=== PATIENT | male | born 1980 | race Caucasian/White ===

== ENCOUNTER 2020-09-11 14:15 | Emergency (ER) | payer BC, OTHER ==
[2020-09-11] MEDS ORDERED: ONDANSETRON 4 MG/2 ML VIAL ONE (15:00)
[2020-09-11] MEDS ORDERED: MORPHINE 4 MG/ML SYR ONE ×2 (15:00→15:43)
--- NOTE | 2020-09-11 15:29 | RAD REPORT ---
EXAM DESCRIPTION: CT - Spine Lumbar Wo Con - 09/11/2020 3:11 pm CLINICAL HISTORY: Radiculopathy. LOWER BACK PAIN COMPARISON: No comparisons TECHNIQUE: Axial noncontrast CT imaging of the lumbar spine was performed with coronal and sagittal re-formatted images. All CT scans are performed using dose optimization technique as appropriate and may include automated exposure control or mA/KV adjustment according to patient size. FINDINGS: No acute lumbar spine fracture seen. No aggressive marrow pattern or malalignment. Paraspinal tissues are normal in thickness. No paraspinal abscess or hematoma seen. Mild posterior disc bulges are seen involving the lower lumbar levels. No severe canal stenosis ident ified. IMPRESSION: No acute lumbar spine abnormality. Mild posterior disc bulges at the lower levels of the lumbar spine are seen. Recommend follow-up none mergent MRI lumbar spine assessment.
[2020-09-11] MEDS ORDERED: KETOROLAC 30 MG/ML INJ ONE (16:06)
[2020-09-11] MEDS ORDERED: LIDOCAINE 4% PATCH ONE (16:06)
[2020-09-11] MEDS ORDERED: CYCLOBENZAPRINE 10 MG TAB ONE (16:49)
[2020-09-11] MEDS ORDERED: FENTANYL CITR 100 MCG/2 ML ONE (16:49)
--- NOTE | 2020-09-11 17:05 | EDPHYS ---
Physician Documentation [facility] Name: Dakota Carr Age: 40 yrs Sex: Male : 1980 Arrival Date: 09/11/2020 Time: 14:16 Bed 7 Private MD: MARIO ALBERTO Physician Ben Vogt HPI: 09/11 14:56 This 40 yrs old Male presents to ER via Wheelchair with complaints of Back pm1 Pain. 14:56 The patient presents with pain that is acute, with no known mechanism of injury. The pm1 symptoms are located in the low back. Onset: The symptoms/episode began/occurred 4 day(s) ago. The pain radiates to the right and left leg. Associated signs and symptoms: Pertinent positives: numbness and tingling to bilateral quadriceps with walking, Pertinent negatives: chest pain, constipation, dysuria, incontinence, numbness, urinary retention, vomiting. The problem was sustained from unknown cause. Modifying factors: the patient symptoms are aggravated by walking. Severity of symptoms: in the emergency department the symptoms are actually worse. The patient has not recently seen a physician. Historical: - Allergies: 14:26 Vancomycin; ll1 14:26 Levofloxacin; ll1 - PMHx: 14:26 Kidney stones; ll1 - PSHx: 14:26 Kidney stents; Lithotripsy; Appendectomy; Hernia repair; ll1 - Immunization history:: Flu vaccine is not up to date. - Social history:: Smoking status: Patient denies any tobacco usage or history of. ROS: 14:56 Constitutional: Negative for fever, chills, and weight loss. pm1 14:56 Cardiovascular: Negative for chest pain, palpitations, and edema, Respiratory: Negative pm1 for shortness of breath, cough, wheezing, and pleuritic chest pain, Abdomen/GI: Negative for abdominal pain, nausea, vomiting, diarrhea, and constipation. 14:56 : Negative for injury, bleeding, discharge, and swelling, MS/Extremity: Negative for injury and deformity, Skin: Negative for injury, rash, and discoloration. 14:56 Back: Positive for of the lumbar area and sacrum. 14:56 Neuro: Positive for numbness, tingling, of the right and left quadriceps with walking. Exam: 14:56 Constitutional: This is a well developed, well nourished patient who is awake, alert, pm1 and in no acute distress. Head/Face: Normocephalic, atraumatic. 14:56 Skin: Warm, dry with normal turgor. Normal color with no rashes, no lesions, and no evidence of cellulitis. MS/ Extremity: Pulses equal, no cyanosis. Neurovascular intact. Full, normal range of motion. 14:56 Cardiovascular: Exam negative for acute changes, Rate: normal, Rhythm: regular, Pulses: no pulse deficits are appreciated. 14:56 Respiratory: Exam negative for acute changes, respiratory distress, shortness of breath. 14:56 Abdomen/GI: Exam negative for acute changes, Inspection: abdomen appears normal, Palpation: abdomen is soft and non-tender, in all quadrants. 14:56 Back: pain, of the lower lumbar area, normal spinal alignment noted. 14:56 Neuro: Exam negative for acute changes, Orientation: is normal, Mentation: is normal, appropriate for stated age, Motor: is normal, moves all fours, Sensation: is normal, no obvious gross deficits. Vital Signs: 14:25 BP 155 / 107; Pulse 89; Resp 18; Temp 97.2; Pulse Ox 99% ; Weight 99.79 kg; Height 6 ll1 ft. 2 in. (187.96 cm); Pain 10/10; 14:57 Pulse 90; Resp 20; Pulse Ox 97% on R/A; sv 15:30 Pain 8/10; sv 15:54 Pain 8/10; sv 15:56 Pulse 70; Resp 16; Pulse Ox 96% on R/A; sv 16:43 Pulse 78; Resp 18; Pulse Ox 98% on R/A; sv 17:36 Pain 5/10; sv 17:36 Pulse 72; Resp 16; Pulse Ox 99% on R/A; sv 14:25 Body Mass Index 28.25 (99.79 kg, 187.96 cm) ll1 MDM: 14:26 Patient medically screened. pm1 17:02 Data reviewed: vital signs. Data interpreted: Pulse oximetry: on room air is 98 %. pm1 Interpretation: normal. Counseling: I had a detailed discussion with the patient and/or guardian regarding: the historical points, exam findings, and any diagnostic results supporting the discharge/admit diagnosis, radiology results, the need for outpatient follow up, for definitive care, a neurosurgeon, to return to the emergency department if symptoms worsen or persist or if there are any questions or concerns that arise at home. 09/11 14:32 Order name: CT Lumbar Spine Wo Con; Complete Time: 15:36 pm1 09/11 14:32 Order name: IV Saline Lock; Complete Time: 14:56 pm1 Administered Medications: 14:53 Drug: Zofran (Ondansetron) 4 mg Route: IVP; Site: right hand; sv 15:30 Follow up: Response: No adverse reaction sv 14:55 Drug: morphine 4 mg {Note: rass2.} Route: IVP; Site: right hand; sv 15:30 Follow up: Pain 8/10 Adult; Response: No adverse reaction; Pain is decreased; RASS: sv Agitated (+2) 15:29 Drug: morphine 4 mg {Note: rass2.} Route: IVP; Site: right hand; sv 15:54 Follow up: Pain 8/10 Adult; Response: No adverse reaction; Pain is unchanged, physician sv notified; RASS: Agitated (+2) 15:54 Drug: Lidoderm 5 % (700 mg/patch) 1 patches {Note: low back.} Route: Topical; Site: sv affected area; 15:54 Drug: TORadol 30 mg Route: IVP; Site: right hand; sv 16:41 Follow up: Response: No adverse reaction sv 16:40 Drug: Flexeril 10 mg Route: PO; sv 17:36 Follow up: Response: No adverse reaction sv 16:40 Drug: fentaNYL (PF) 50 mcg {Note: rass1.} Route: IVP; Site: right hand; sv 17:36 Follow up: Pain 5/10 Adult; Response: No adverse reaction; RASS: Alert and Calm (0) sv Disposition: 09/12 14:38 Co-signature as Attending Physician, Ben Vogt MD I agree with the assessment and carolyn plan of care. Disposition: 09/11/20 17:05 Discharged to Home. Impression: Low back pain, Other intervertebral disc displacement, lumbar region - herniated disc. - Condition is Stable. - Discharge Instructions: Back Pain, Adult, Herniated Disk. - Prescriptions for Tylenol- Codeine #3 300-30 mg Oral Tablet - take 2 tablets by ORAL route every 6 hours As needed; 20 tablet. Lidoderm 5 % Topical adhesive patch,medicated - apply 1 patch by TRANSDERMAL route once daily As needed 12 hours on and 12 hours off in a 24 hour period; 30 Transdermal Patch. Cyclobenzaprine 10 mg Oral Tablet - take 1 tablet by ORAL route every 8 hours As needed; 30 tablet. - Medication Reconciliation Form, Thank You Letter, Antibiotic Education, Prescription Opioid Use form. - Follow up: Emergency Department; When: As needed; Reason: Worsening of condition. Follow up: Private Physician; When: 2 - 3 days; Reason: Recheck today's complaints, Continuance of care, Re-evaluation by your physician. - Problem is new. - Symptoms have improved. Signatures: Dispatcher [employer] EDDiane Greenberg RN RN sv Ben Vogt MD MD cha Marinas, Patrick, WOODEN TANK ERECTOR WOODEN TANK ERECTOR pm1 Shaila Vance RN RN ll1 Corrections: (The following items were deleted from the chart) 09/11 17:55 17:05 09/11/2020 17:05 Discharged to Home. Impression: Low back pain; Other sv intervertebral disc displacement, lumbar region - herniated disc. Condition is Stable. Forms are Medication Reconciliation Form, Thank You Letter, Antibiotic Education, Prescription Opioid Use. Follow up: Emergency Department; When: As needed; Reason: Worsening of condition. Follow up: Private Physician; When: 2 - 3 days; Reason: Recheck today's complaints, Continuance of care, Re-evaluation by your physician. Problem is new. Symptoms have improved. pm1
--- NOTE | 2020-09-11 17:05 | ER ---
Nurse's Notes [facility] Name: Dakota Carr Age: 40 yrs Sex: Male : 1980 Arrival Date: 09/11/2020 Time: 14:16 Bed 7 Private MD: Diagnosis: Low back pain;Other intervertebral disc displacement, lumbar region-herniated disc Presentation: 09/11 14:25 Chief complaint: Patient states: Low back pain for 4 days, worse today. Pain radiates ll1 down both legs. No urinary problems. No fever. Coronavirus screen: Client denies travel out of the [place] in the last 14 days. At this time, the client does not indicate any symptoms associated with coronavirus-19. Ebola Screen: Patient denies travel to an Ebola-affected area in the 21 days before illness onset. Initial Sepsis Screen: Does the patient meet any 2 criteria? No. Patient's initial sepsis screen is negative. Does the patient have a suspected source of infection? Yes: Bone or joint infection. Risk Assessment: Do you want to hurt yourself or someone else? Patient reports no desire to harm self or others. Onset of symptoms was September 07, 2020. 14:25 Method Of Arrival: Wheelchair ll1 14:25 Acuity: CIARA 3 ll1 Historical: - Allergies: 14:26 Vancomycin; ll1 14:26 Levofloxacin; ll1 - PMHx: 14:26 Kidney stones; ll1 - PSHx: 14:26 Kidney stents; Lithotripsy; Appendectomy; Hernia repair; ll1 - Immunization history:: Flu vaccine is not up to date. - Social history:: Smoking status: Patient denies any tobacco usage or history of. Screenin:52 Abuse screen: Denies threats or abuse. Denies injuries from another. Nutritional sv screening: No deficits noted. Tuberculosis screening: No symptoms or risk factors identified. Fall Risk None identified. Assessment: 14:50 General: Appears in no apparent distress. uncomfortable, well developed, Behavior is sv calm, cooperative, appropriate for age. Pain: Complains of pain in low back area Pain radiates to right leg and left leg Pain currently is 10 out of 10 on a pain scale. Pain began 4 days ago Is continuous. Neuro: Level of Consciousness is awake, alert, obeys commands, Oriented to person, place, time, situation, Moves all extremities. Full function. Respiratory: Airway is patent Respiratory effort is even, unlabored, Respiratory pattern is regular, symmetrical. Derm: Skin is intact, Skin is pink, warm \T\ dry. Musculoskeletal: Range of motion: intact in all extremities. 15:29 Reassessment: Patient appears in no apparent distress at this time. Patient and/or sv family updated on plan of care and expected duration. Pain level reassessed. Patient is alert, oriented x 3, equal unlabored respirations, skin warm/dry/pink. Patient states symptoms have improved. Pain: Pain currently is 8 out of 10 on a pain scale. 16:41 Reassessment: Patient appears in no apparent distress at this time. No changes from sv previously documented assessment. Patient and/or family updated on plan of care and expected duration. Pain level reassessed. Patient is alert, oriented x 3, equal unlabored respirations, skin warm/dry/pink. 17:20 Reassessment: Pt waiting for his transportation home. sv 17:35 Reassessment: Patient appears in no apparent distress at this time. Patient and/or sv family updated on plan of care and expected duration. Pain level reassessed. Patient is alert, oriented x 3, equal unlabored respirations, skin warm/dry/pink. Patient states feeling better. Patient states symptoms have improved. Vital Signs: 14:25 BP 155 / 107; Pulse 89; Resp 18; Temp 97.2; Pulse Ox 99% ; Weight 99.79 kg; Height 6 ll1 ft. 2 in. (187.96 cm); Pain 10/10; 14:57 Pulse 90; Resp 20; Pulse Ox 97% on R/A; sv 15:30 Pain 8/10; sv 15:54 Pain 8/10; sv 15:56 Pulse 70; Resp 16; Pulse Ox 96% on R/A; sv 16:43 Pulse 78; Resp 18; Pulse Ox 98% on R/A; sv 17:36 Pain 5/10; sv 17:36 Pulse 72; Resp 16; Pulse Ox 99% on R/A; sv 14:25 Body Mass Index 28.25 (99.79 kg, 187.96 cm) ll1 ED Course: 14:16 Patient arrived in ED. ds1 14:23 Diane Blackmon RN is Primary Nurse. sv 14:25 [facility] pm1 14:25 Ben Vogt MD is Attending Physician. pm1 14:26 Triage completed. ll1 14:26 Arm band placed on Patient placed in an exam room, on a stretcher. ll1 14:52 Patient has correct armband on for positive identification. Bed in low position. Call sv light in reach. Side rails up X2. Pulse ox on. Door closed. Head of bed elevated. 14:52 Inserted saline lock: 22 gauge in right hand, using aseptic technique. Blood collected. sv Flushed right hand with 5 ml normal saline. 15:10 CT Lumbar Spine Wo Con In Process Unspecified. EDMS 17:36 No provider procedures requiring assistance completed. IV discontinued, intact, sv bleeding controlled, No redness/swelling at site. Pressure dressing applied. Administered Medications: 14:53 Drug: Zofran (Ondansetron) 4 mg Route: IVP; Site: right hand; sv 15:30 Follow up: Response: No adverse reaction sv 14:55 Drug: morphine 4 mg {Note: rass2.} Route: IVP; Site: right hand; sv 15:30 Follow up: Pain 8/10 Adult; Response: No adverse reaction; Pain is decreased; RASS: sv Agitated (+2) 15:29 Drug: morphine 4 mg {Note: rass2.} Route: IVP; Site: right hand; sv 15:54 Follow up: Pain 8/10 Adult; Response: No adverse reaction; Pain is unchanged, physician sv notified; RASS: Agitated (+2) 15:54 Drug: Lidoderm 5 % (700 mg/patch) 1 patches {Note: low back.} Route: Topical; Site: sv affected area; 15:54 Drug: TORadol 30 mg Route: IVP; Site: right hand; sv 16:41 Follow up: Response: No adverse reaction sv 16:40 Drug: Flexeril 10 mg Route: PO; sv 17:36 Follow up: Response: No adverse reaction sv 16:40 Drug: fentaNYL (PF) 50 mcg {Note: rass1.} Route: IVP; Site: right hand; sv 17:36 Follow up: Pain 5/10 Adult; Response: No adverse reaction; RASS: Alert and Calm (0) sv Outcome: 17:05 Discharge ordered by . pm1 17:37 Discharged to home via wheelchair, with family. sv 17:37 Condition: stable 17:37 Discharge instructions given to patient, Instructed on discharge instructions, follow up and referral plans. no drinking with medication, no driving heavy equipment, medication usage, Demonstrated understanding of instructions, follow-up care, medications, Prescriptions given X 3. 17:55 Patient left the ED. sv Signatures: Dispatcher [employer] Diane Cifuentes RN RN sv Sanford, Demi ds1 Shyam Walsh NP [employer] ENGINEER pm1 Shaila Vance RN RN ll1
[2020-09-11 17:59] VITALS: BP 155/107; TEMP 97.2
[2020-09-11 18:06] VITALS: O2SAT 99
== END 2020-09-11 17:55 | disposition home or self-care (01) ==
LOC: ER 14:15
DX: M51.26 Other intervertebral disc displacement, lumbar region (principal); Z87.442 Personal history of urinary calculi; Z88.1 Allergy status to other antibiotic agents; Z88.3 Allergy status to other anti-infective agents
CPT/HCPCS: 72131; 96375; 96374; 99284; J3010; J2405

== ENCOUNTER 2022-03-08 09:33 | Emergency (ER) | payer BC ==
--- OUTSIDE RECORDS SUMMARY | 2022-03-08 09:36 | XMS REPORT | Continuity of Care Document ---
:1980 Author Organization [facility] t Address [address] [place] [address] Care Team Providers Name Role Phone ANAHI EASON Attending Clinician Unavailable HAN SAHNI Attending Clinician Unavailable NIKKI LUGO Attending Clinician Unavailable MD HAN SAHNI Attending Clinician Unavailable HAN SAHNI Admitting Clinician Unavailable MD HAN SAHNI Admitting Clinician Unavailable Problems This patient has no known problems. Allergies, Adverse Reactions, Alerts This patient has no known allergies or adverse reactions. Medications This patient has no known medications. Procedures This patient has no known procedures. Encounters Start End Encounter Admission Attending Care Care Encounter Source Date/Time Date/Time Type Type Clinicians Facility Department ID 2021-04-14 2021-04-14 Outpatient YUMI [facility] [id number] 00:00:00 00:00:00 ANAHI [facility] 2021-04-14 2021-04-14 Outpatient [facility] [id number] 00:00:00 00:00:[address] 2021-03-31 2021-03-31 [facility] [id number] 00:00:00 00:00:00 HAN [facility] 2021-02-07 2021-02-07 [facility] [id number] 00:00:00 00:00:00 HAN [address] 2021-01-13 2021-01-13 [facility] [id number] 00:00:00 00:00:00 NIKKI [address] 2021-01-11 2021-01-11 Outpatient [facility] 021 [id number] 00:00:00 00:00:00 HAN [address] 2021-01-07 2021-01-07 Outpatient SAHNI, [facility] [id number] 00:00:00 00:00:00 HAN [address] 2021-01-04 2021-01-04 Outpatient SAHNI, [facility] 021 [id number] 00:00:00 00:00:00 HAN [address] 2020-12-31 2020-12-31 Outpatient SAHNI, [facility] [id number] 00:00:00 00:00:00 HAN [address] 2020-12-30 2020-12-30 Outpatient SAHNI, [facility] [id number] 00:00:00 00:00:00 HAN [address] 2020-12-30 2020-12-30 Outpatient SAHNI, [facility] [id number] 00:00:00 00:00:00 HAN [address] 2020-12-30 2020-12-30 Outpatient SAHNI, [facility] [id number] 00:00:00 00:00:00 HAN [address] 2020-12-20 2020-12-20 Outpatient SAHNI, [facility] [id number] 00:00:00 00:00:00 HAN [address] 2020-12-19 2020-12-19 Outpatient SAHNI, [facility] [id number] 00:00:00 00:00:00 HAN [address] 2020-12-06 2020-12-06 Outpatient SAHNI, [facility] [id number] 00:00:00 00:00:00 HAN [address] 2020-12-06 2020-12-06 Outpatient SAHNI, [facility] [id number] 00:00:00 00:00:00 HAN [address] 2020-12-06 2020-12-06 Outpatient SAHNI, [facility] [id number] 00:00:00 00:00:00 HAN [address] 2020-12-06 2020-12-06 Outpatient SAHNI, [facility] [id number] 00:00:00 00:00:00 HAN [address] Results Test Description Test Time Test Comments Results Result Comments Source SARS-CoV-2 (COVID-19) RNA [Presence] in Respiratory sp ecimen by 2021-01-07 12:06:41 RINA with probe detection Test Item Value Reference Range Interpretation Comme nts SARS-CoV-2 (COVID-19) RNA [Presence] in Respiratory Not detected No t-Detected specimen by RINA with probe detection (test code = 61966-7) Whether patient is employed in a healthcare setting (test code = 81473-0) Whether the patient has symptoms related to condition of interest (test code = 37411-2) Patient was hospitalized because of this condition (test code = 97580-5) Whether the patient was admitted to intensive care unit (ICU) for condition of interest (test code = 15906-3) Whether patient resides in a congregate care setting (test code = 12145-0) SARS-CoV-2 (COVID-19) RNA [Presence] in Respiratory specimen by RINA with probe [id number] 00:01:06 Test Item Value Reference Range Interpretation Comments SARS-CoV-2 (COVID-19) RNA Not detected Not-Detected [Presence] in Respiratory specimen by RINA with probe detection (test code = 11627-8) Whether patient is employed in a healthcare setting (test code = 82385-5) Whether the patient has symptoms related to condition of interest (test code = 49390-8) Patient was hospitalized because of this condition (test code = 00252-8) Whether the patient was admitted to intensive care unit (ICU) for condition of interest (test code = 02553-3) Whether patient resides in a congregate care setting (test code = 62652-5)
[2022-03-08] MEDS ORDERED: HYDROMORPHONE HCL 1 MG/ML INJ ONE ×2 (09:53→11:34)
[2022-03-08] MEDS ORDERED: ONDANSETRON 4 MG/2 ML VIAL ONE (09:53)
[2022-03-08] MEDS ORDERED: KETOROLAC 30 MG/ML INJ ONE (09:53)
[2022-03-08] MEDS ORDERED: NA CHLORIDE 0.9% 1,000 ML ONE (09:54)
[2022-03-08 10:03] LABS: Absolute Lymphocytes (CBC) 2.3 K/uL (0.7-4.9); Hematocrit 48.8 % (39.6-49.0); Lymphocytes % 33.7 % (15.3-44.8); MCV 83.2 fL (80-100); MPV 7.1 fL (7.6-11.3); RBC Red Blood Cell Count 5.86 M/uL (4.33-5.43)
[2022-03-08 10:21] LABS: Albumin 3.9 g/dL (3.4-5.0); Bilirubin Total 0.5 mg/dL (0.2-1.0); Protein, Total 8.2 g/dL (6.4-8.2)
--- NOTE | 2022-03-08 10:26 | RAD REPORT ---
EXAM DESCRIPTION: CTStone Protocol - 03/08/2022 10:17 am CLINICAL HISTORY: flank pain COMPARISON: Abdomen Pelvis W Contrast dated 11/18/2016; CT ABD PELVIS W CONTRAST dated 04/16/2014; C TSTONE PROTOCOL dated 11/06/2012; CT-STONE PROTOCOL dated 10/26/2007 TECHNIQUE: CT of the abdomen and pelvis was performed. All CT scans are performed using dose optimization technique as appropriate and may include automated exposure control or mA/KV adjustment according to patient size. FINDINGS: Lower chest: Scattered coronary artery calcifications. Liver: Too small to characterize liver lesions which are likely benign. Biliary: No biliary ductal dilatation. Stomach: No significant focal abnormality. Duodenum: No significant focal abnormality. Pancreas: No significant abnormality. Spleen: No significant abnormality. Adrenal: No suspicious lesions. Kidney/ureter: Mild right-sided hydroureteronephrosis. 4 millimeters stone at the right distal ureter , just proximal to the UVJ. Retroperitoneum: No retroperitoneal adenopathy. Vascular: No aneurysm. Bowel: Appendectomy. No bowel obstruction .. Peritoneum: No ascites or free air. Bladder: Bladder wall thickening. Reproductive: No adnexal masses. Bones: No acute fracture. Other: n/a IMPRESSION: Mild right-sided hydroureteronephrosis secondary to a 4 mm stone in the right distal ure ter.
[2022-03-08] MEDS ORDERED: CEFTRIAXONE 1000 MG/VIAL ONE (10:43)
[2022-03-08] MEDS ORDERED: MAGNESIUM SULFATE 1 gm IVPB 1 GM/100 ML BAG IV ONE (10:43)
[2022-03-08] MEDS ORDERED: TAMSULOSIN 0.4 MG SR CAP ONE (10:43)
[2022-03-08 12:23] LABS: Urine Blood 3+ (Negative); Urine Glucose Negative (Negative); Urine Protein 2+ (Negative); Urine Specific Gravity >=1.030 (1.005-1.030); Urine pH 5.5 (5.0-7.0)
--- NOTE | 2022-03-08 12:33 | EDPHYS ---
Physician Documentation [facility] Name: Dakota Carr Age: 41 yrs Sex: Male : 1980 Arrival Date: 03/08/2022 Time: 09:34 Bed 12 Private MD: ED Physician Shahnaz Monroy HPI: 03/08 09:45 This 41 yrs old Male presents to ER via Ambulatory with complaints of Possible Kidney cp Stone. 09:45 The patient complains of pain in the right flank. The pain radiates to the right lower cp abdomen. 09:45 Onset: The symptoms/episode began/occurred suddenly, this morning. Associated signs and cp symptoms: Pertinent positives: nausea, vomiting. 09:45 Severity of pain: in the emergency department the pain is unchanged despite home cp interventions. 09:45 The patient has experienced similar episodes in the past, multiple times, today's cp symptoms are similar, to when the patient was apparently diagnosed with kidney stone. Historical: - Allergies: 09:37 Levofloxacin; iw 09:37 Vancomycin; iw - PMHx: 09:37 Kidney stones; iw - Immunization history:: Adult Immunizations unknown. - Social history:: Smoking status: unknown. ROS: 09:50 Constitutional: Negative for body aches, chills, fever, poor PO intake. cp 09:50 Back: Positive for flank pain, on the right. cp 09:50 Eyes: Negative for injury, pain, redness, and discharge. cp 09:50 ENT: Negative for drainage from ear(s), ear pain, sore throat, difficulty swallowing, difficulty handling secretions. 09:50 Cardiovascular: Negative for chest pain, edema, palpitations. 09:50 Respiratory: Negative for cough, shortness of breath, wheezing. 09:50 Abdomen/GI: Positive for nausea, Negative for diarrhea, constipation, active vomiting. 09:50 : Negative for urinary symptoms, testicular pain 09:50 All other systems are negative. Exam: 09:55 Constitutional: The patient appears in no acute distress, alert, awake, non-toxic, well cp developed, well nourished, in obvious pain, uncomfortable. 09:55 Head/Face: Normocephalic, atraumatic. cp 09:55 Eyes: Periorbital structures: appear normal, Conjunctiva: normal, no exudate, no injection, Sclera: no appreciated abnormality, Lids and lashes: appear normal, bilaterally. 09:55 ENT: External ear(s): are unremarkable, Nose: is normal, Mouth: Lips: moist, Oral mucosa: moist, Posterior pharynx: Airway: no evidence of obstruction, patent. 09:55 Chest/axilla: Inspection: normal. 09:55 Cardiovascular: Rate: normal, Rhythm: regular, Edema: is not appreciated, JVD: is not appreciated. 09:55 Respiratory: the patient does not display signs of respiratory distress, Respirations: normal, no use of accessory muscles, no retractions, labored breathing, is not present, Breath sounds: are clear throughout, no decreased breath sounds, no stridor, no wheezing. 09:55 Abdomen/GI: Inspection: abdomen appears normal, Bowel sounds: active, all quadrants, Palpation: soft, in all quadrants, severe abdominal tenderness, in the anterior aspect of right lateral abdomen and posterior aspect of right lateral abdomen, rebound tenderness, is not appreciated. 09:55 Skin: no rash present. Vital Signs: 09:36 BP 168 / 110; Pulse 77; Resp 16; Temp 97.2; Pulse Ox 99% on R/A; Weight 104.33 kg; iw Height 6 ft. 2 in. (187.96 cm); Pain 9/10; 09:36 Body Mass Index 29.53 (104.33 kg, 187.96 cm) iw MDM: 09:41 Patient medically screened. cp 10:00 Differential diagnosis: nephrolithiasis, pyelonephritis, UTI, testicular torsion, cp diverticulitis, pancreatitis. 12:32 Data reviewed: vital signs, nurses notes, lab test result(s), radiologic studies, CT cp scan. 12:32 Counseling: I had a detailed discussion with the patient and/or guardian regarding: the cp historical points, exam findings, and any diagnostic results supporting the discharge/admit diagnosis, lab results, radiology results, to return to the emergency department if symptoms worsen or persist or if there are any questions or concerns that arise at home. Response to treatment: the patient's symptoms have markedly improved after treatment, and as a result, I will discharge patient. ED course: VSS. Pain markedly improved. Will discharge to home for continued monitoring. 03/08 09:39 Order name: CBC with Diff; Complete Time: 10:29 iw 03/08 10:29 Interpretation: Normal except: RBC 5.86; MPV 7.1. cp 03/08 09:39 Order name: CMP; Complete Time: 10:29 iw 03/08 10:29 Interpretation: Normal except: CRE 1.49; GFR 61; GLOB 4.3; A/G 0.9. cp 03/08 09:39 Order name: Lipase; Complete Time: 10:29 iw 03/08 09:43 Order name: Urine Microscopic Only; Complete Time: 12:58 cp 03/08 12:58 Interpretation: Normal except: URBC >50; RAKESH Cx 1+. cp 03/08 09:43 Order name: CT Stone Protocol; Complete Time: 10:29 cp 03/08 12:23 Order name: Urine Dipstick-Ancillary; Complete Time: 12:32 EDMS 03/08 12:32 Interpretation: Normal except: UBLD 3+; UPROT 2+. cp 03/08 09:39 Order name: IV Saline Lock; Complete Time: 09:49 iw 03/08 09:39 Order name: Labs collected and sent; Complete Time: 09:49 iw 03/08 09:39 Order name: Urine Dipstick-Ancillary (obtain specimen); Complete Time: 12:22 iw Administered Medications: 09:54 Drug: NS 0.9% 1000 ml Route: IV; Rate: 1 bolus; Site: left antecubital; iw 11:00 Follow up: IV Status: Completed infusion iw 09:54 Drug: Dilaudid (HYDROmorphone) 1 mg Route: IVP; Site: left antecubital; iw 11:00 Follow up: Response: No adverse reaction; Pain is unchanged, physician notified iw 11:00 Follow up: Response: RASS: Restless (+1) iw 09:54 Drug: Ketorolac 15 mg Route: IVP; Site: left antecubital; iw 10:20 Follow up: Response: No adverse reaction iw 10:42 Drug: Flomax (tamsulosin) 0.4 mg Route: PO; iw 11:45 Follow up: Response: No adverse reaction iw 10:42 Drug: Magnesium Sulfate 1 grams Route: IVPB; Infused Over: 1 hrs; Site: left iw antecubital; 11:30 Follow up: IV Status: Completed infusion iw 10:42 Drug: Rocephin (cefTRIAXone) 1 grams Route: IV; Rate: calculated rate; Site: left iw antecubital; 10:45 Follow up: IV Status: Completed infusion iw 11:10 Drug: Dilaudid (HYDROmorphone) 1 mg Route: IVP; Site: left antecubital; iw 12:00 Follow up: Response: No adverse reaction iw 13:08 Drug: Hydrocodone-Acetaminophen (10 mg-500 mg) 1 tabs Route: PO; iw 13:25 Follow up: Response: No adverse reaction iw Disposition Summary: 03/08/22 12:32 Discharge Ordered Location: Home cp Problem: new cp Symptoms: have improved cp Condition: Stable cp Diagnosis - Calculus of ureter - right(03/08/22 12:34) cp Followup: cp - With: Leo Saleh MD - When: 2 - 3 days - Reason: Worsening of condition Discharge Instructions: - Discharge Summary Sheet cp - Kidney Stones cp - Renal Colic cp Forms: - Medication Reconciliation Form cp - Thank You Letter cp - Antibiotic Education cp - Prescription Opioid Use cp Prescriptions: - Flomax 0.4 mg Oral capsule - take 1 capsule by ORAL route once daily 1/2 hour following the same meal each cp day; 5 capsule; Refills: 0, Product Selection Permitted - Zofran 4 mg Oral Tablet - take 1 tablet by ORAL route every 12 hours As needed; 20 tablet; Refills: 0, cp Product Selection Permitted - cefpodoxime 200 mg Oral Tablet - take 1 tablet by ORAL route every 12 hours for 7 days with food; 14 tablet; cp Refills: 0, Product Selection Permitted - Tylenol-Codeine #3 300 mg-30 mg Oral - take 2 tablet by ORAL route every 6-8 hours; 20 tablet; Refills: 0, Product cp Selection Permitted Signatures: Dispatcher [employer] Marycarmen Vasquez RN RN iw Ben Mccormick PA PA cp Corrections: (The following items were deleted from the chart) 12:34 12:32 Calculus of kidney with calculus of ureter cp cp 12:34 12:32 Calculus of ureter cp cp
--- NOTE | 2022-03-08 12:33 | ER ---
Nurse's Notes [facility] Name: Dakota Carr Age: 41 yrs Sex: Male : 1980 Arrival Date: 03/08/2022 Time: 09:34 Bed 12 Private MD: Diagnosis: Calculus of ureter-right Presentation: 03/08 09:36 Chief complaint: Patient states: right flank pain since 714, +n/v, +hx of kidney iw stones. Coronavirus screen: At this time, the client does not indicate any symptoms associated with coronavirus-19. Ebola Screen: Patient negative for fever greater than or equal to 101.5 degrees Fahrenheit, and additional compatible Ebola Virus Disease symptoms Patient denies exposure to infectious person. Patient denies travel to an Ebola-affected area in the 21 days before illness onset. No symptoms or risks identified at this time. Initial Sepsis Screen: Does the patient meet any 2 criteria? No. Patient's initial sepsis screen is negative. Does the patient have a suspected source of infection? No. Patient's initial sepsis screen is negative. Risk Assessment: Do you want to hurt yourself or someone else? Patient reports no desire to harm self or others. Onset of symptoms was March 08, 2022. 09:36 Method Of Arrival: Ambulatory iw 09:36 Acuity: CIARA 3 iw Historical: - Allergies: 09:37 Levofloxacin; iw 09:37 Vancomycin; iw - PMHx: 09:37 Kidney stones; iw - Immunization history:: Adult Immunizations unknown. - Social history:: Smoking status: unknown. Screenin:40 Abuse screen: Denies threats or abuse. Denies injuries from another. Nutritional iw screening: No deficits noted. Tuberculosis screening: No symptoms or risk factors identified. Fall Risk IV access (20 points). Assessment: 09:39 General: Appears uncomfortable, Behavior is cooperative. Pain: Complains of pain in iw anterior aspect of right lateral abdomen, posterior aspect of right lateral abdomen, right upper quadrant and right lower quadrant. Neuro: Level of Consciousness is awake, alert, obeys commands, Oriented to person, place, time, situation. Respiratory: Respiratory effort is even, unlabored, Respiratory pattern is regular, symmetrical. GI: Bowel sounds present X 4 quads. Abd is soft X 4 quads Reports. : Reports pain in right flank(s). Vital Signs: 09:36 BP 168 / 110; Pulse 77; Resp 16; Temp 97.2; Pulse Ox 99% on R/A; Weight 104.33 kg; iw Height 6 ft. 2 in. (187.96 cm); Pain 9/10; 09:36 Body Mass Index 29.53 (104.33 kg, 187.96 cm) iw ED Course: 09:34 Patient arrived in ED. as 09:37 Triage completed. iw 09:38 Marycarmen Dudley, RN is Primary Nurse. iw 09:39 Ben Mccormick PA is PHCP. cp 09:39 Shahnaz Monroy MD is Attending Physician. cp 09:39 Arm band placed on. iw 09:45 Patient has correct armband on for positive identification. iw 09:49 Initial lab(s) drawn, by me, sent to lab. Inserted saline lock: 20 gauge in left jw7 antecubital area, using aseptic technique. Blood collected. 09:49 CBC with Diff Sent. jw7 09:49 CMP Sent. jw7 09:49 Lipase Sent. jw7 10:19 CT Stone Protocol In Process Unspecified. EDMS 12:26 Urine Microscopic Only Sent. kc6 12:31 Leo Saleh MD is Referral Physician. cp 13:11 No provider procedures requiring assistance completed. iw 13:12 IV discontinued, intact, bleeding controlled, No redness/swelling at site. Pressure iw dressing applied. Administered Medications: :54 Drug: NS 0.9% 1000 ml Route: IV; Rate: 1 bolus; Site: left antecubital; iw 11:00 Follow up: IV Status: Completed infusion iw :54 Drug: Dilaudid (HYDROmorphone) 1 mg Route: IVP; Site: left antecubital; iw 11:00 Follow up: Response: No adverse reaction; Pain is unchanged, physician notified iw 11:00 Follow up: Response: RASS: Restless (+1) iw :54 Drug: Ketorolac 15 mg Route: IVP; Site: left antecubital; iw 10:20 Follow up: Response: No adverse reaction iw 10:42 Drug: Flomax (tamsulosin) 0.4 mg Route: PO; iw 11:45 Follow up: Response: No adverse reaction iw 10:42 Drug: Magnesium Sulfate 1 grams Route: IVPB; Infused Over: 1 hrs; Site: left iw antecubital; 11:30 Follow up: IV Status: Completed infusion iw 10:42 Drug: Rocephin (cefTRIAXone) 1 grams Route: IV; Rate: calculated rate; Site: left iw antecubital; 10:45 Follow up: IV Status: Completed infusion iw 11:10 Drug: Dilaudid (HYDROmorphone) 1 mg Route: IVP; Site: left antecubital; iw 12:00 Follow up: Response: No adverse reaction iw 13:08 Drug: Hydrocodone-Acetaminophen (10 mg-500 mg) 1 tabs Route: PO; iw 13:25 Follow up: Response: No adverse reaction iw Medication: 09:45 VIS not applicable for this client. iw Outcome: 12:32 Discharge ordered by MD. cp 13:11 Discharged to home ambulatory, with family. iw 13:11 Condition: good 13:11 Discharge instructions given to patient, Instructed on discharge instructions, follow up and referral plans. Demonstrated understanding of instructions, follow-up care, medications, Prescriptions given X 13:12 Patient left the ED. ld1 Signatures: Dispatcher [employer] Lydia Augustine Irene, RN RN iw Ben Mccormick PA PA cp Dibbern, Lauren, RN RN ld1 Pamela Judd7 Siomara Fry kc6 Corrections: (The following items were deleted from the chart) 10:07 09:36 Pulse 77bpm; Resp 16bpm; Pulse Ox 99% RA; Temp 97.2F; 104.33 kg; Height 6 ft. 2 iw in.; BMI: 29.5; Pain 9/10; iw
[2022-03-08 12:39] LABS: Urine Bacteria <20 /HPF (<20); Urine Mucus 2+ /HPF (None Seen); Urine RBC >50 /HPF (None Seen)
[2022-03-08] MEDS ORDERED: HYDROCODONE/APAP 10/325 TAB ONE (13:15)
[2022-03-08 13:17] VITALS: BP 168/110; TEMP 97.2; O2SAT 99
== END 2022-03-08 13:12 | disposition home or self-care (01) ==
LOC: ER 09:33
DX: N20.1 Calculus of ureter (principal); Z87.442 Personal history of urinary calculi; Z88.1 Allergy status to other antibiotic agents; Z88.3 Allergy status to other anti-infective agents
CPT/HCPCS: 85025; 36415; 83690; 80053; 76377; 74176; J3475; J1170 ×2; J7030; J2405; 81003; 81015; 96361; 96365; 96375; 99284

== ENCOUNTER 2022-03-12 18:50 | Emergency (ER) | payer BC ==
--- OUTSIDE RECORDS SUMMARY | 2022-03-12 18:53 | XMS REPORT | Continuity of Care Document ---
:1980 Author Organization [facility] t Address [address] [place] [address] [address] [place] [address] Care Team Providers Name Role Phone ANAHI [...] Clinicians Facility Department ID 2021-04-14 2021-04-14 Outpatient [facility] [id number] [place] 00:00:00 00:00:00 ANAHI [address] 2021-04-14 2021-04-14 Outpatient [facility] [id number] [place] 00:00:00 00:00:[address] 2021-03-31 2021-03-31 Outpatient [facility] [id number] [place] 00:00:00 00:00:00 HAN [address] 2021-02-07 2021-02-07 Outpatient [facility] [id number] [place] 00:00:00 00:00:00 HAN [address] 2021-01-13 2021-01-13 [id number] [place] 00:00:00 00:00:00 NIKKI [address] 2021-01-11 2021-01-11 Outpatient [facility] 021 [id number] [place] 00:00:00 00:00:00 HAN [address] 2021-01-07 2021-01-07 Outpatient SAHNI, [facility] [id number] [place] 00:00:00 00:00:00 HAN [address] 2021-01-04 2021-01-04 Outpatient SAHNI, [facility] 021 [id number] [place] 00:00:00 00:00:00 HAN [address] 2020-12-31 2020-12-31 Outpatient SAHNI, [facility] [id number] [place] 00:00:00 00:00:00 HAN [address] 2020-12-30 2020-12-30 Outpatient SAHNI, [facility] [id number] [place] 00:00:00 00:00:00 HAN [address] 2020-12-30 2020-12-30 Outpatient SAHNI, [facility] [id number] [place] 00:00:00 00:00:00 HAN [address] 2020-12-30 2020-12-30 Outpatient SAHNI, [facility] [id number] [place] 00:00:00 00:00:00 HAN [address] 2020-12-20 2020-12-20 Outpatient SAHNI, [facility] [id number] [place] 00:00:00 00:00:00 HAN [address] 2020-12-19 2020-12-19 Outpatient SAHNI, [facility] [id number] [place] 00:00:00 00:00:00 HAN [address] 2020-12-06 2020-12-06 Outpatient SAHNI, [facility] [id number] [place] 00:00:00 00:00:00 HAN [address] 2020-12-06 2020-12-06 Outpatient SAHNI, [facility] [id number] [place] 00:00:00 00:00:00 HAN [address] 2020-12-06 2020-12-06 Outpatient SAHNI, [facility] [id number] [place] 00:00:00 00:00:00 HAN [address] 2020-12-06 2020-12-06 Outpatient SAHNI, [facility] [id number] [place] 00:00:00 00:00:00 HAN [address] Results Test Description Test Time Test Comments Results Result Comments Source SARS-CoV-2 (COVID-19) RNA [Presence] in Respiratory sp ecimen by 2021-01-07 12:06:41 RINA with probe detection Test Item Value Reference Range Interpretation Comme nts SARS-CoV-2 (COVID-19) RNA [Presence] in Respiratory Not detected No t-Detected specimen by RINA with probe detection (test code = 69593-4) Whether patient is employed in a healthcare setting (test code = 75974-6) Whether the patient has symptoms related to condition of interest (test code = 00085-5) Patient was hospitalized because of this condition (test code = 07108-1) Whether the patient was admitted to intensive care unit (ICU) for condition of interest (test code = 31050-6) Whether patient resides in a congregate care setting (test code = 47909-2) SARS-CoV-2 (COVID-19) RNA [Presence] in Respiratory specimen by RINA with probe [id number] 00:01:06 Test Item Value Reference Range Interpretation Comments SARS-CoV-2 (COVID-19) RNA Not detected Not-Detected [Presence] in Respiratory specimen by RINA with probe detection (test code = 77484-9) Whether patient is employed in a healthcare setting (test code = 74090-6) Whether the patient has symptoms related to condition of interest (test code = 92462-9) Patient was hospitalized because of this condition (test code = 56134-3) Whether the patient was admitted to intensive care unit (ICU) for condition of interest (test code = 67896-0) Whether patient resides in a congregate care setting (test code = 33983-3)
[2022-03-12] MEDS ORDERED: PROMETHAZINE INJ 25 MG/ML AMP ONE (19:41)
[2022-03-12] MEDS ORDERED: KETOROLAC 30 MG/ML INJ ONE (19:41)
[2022-03-12] MEDS ORDERED: NA CHLORIDE 0.9% 1,000 ML ONE (19:41)
[2022-03-12] MEDS ORDERED: CEFTRIAXONE 1000 MG/VIAL ONE (19:41)
[2022-03-12 19:55] LABS: Absolute Lymphocytes (CBC) 2.3 K/uL (0.7-4.9); Hematocrit 44.9 % (39.6-49.0); Lymphocytes % 32.7 % (15.3-44.8); MPV 7.4 fL (7.6-11.3); RBC Red Blood Cell Count 5.34 M/uL (4.33-5.43)
[2022-03-12 20:08] LABS: Potassium 3.9 mmol/L (3.5-5.1)
[2022-03-12] MEDS ORDERED: FENTANYL CITR 100 MCG/2 ML ONE (20:35)
[2022-03-12 20:50] LABS: Urine Blood Trace-intact (Negative); Urine Glucose Negative (Negative); Urine Protein Negative (Negative); Urine Specific Gravity >=1.030 (1.005-1.030)
--- NOTE | 2022-03-12 21:13 | RAD REPORT ---
EXAM DESCRIPTION: CT - Stone Protocol - 03/12/2022 8:50 pm CLINICAL HISTORY: Flank pain. re-eval stone location and hydro COMPARISON: Stone Protocol dated 03/08/2022 TECHNIQUE: Axial images were obtained without oral or IV contrast. Lack of contrast limits solid org an and vascular assessment. The [id number] spans the entirety of the system partially obscuring uppermost abdomen and lung bases. Coronal reformatted images were obtained and reviewed. All CT scans are performed using dose optimization technique as appropriate and may include automated exposure control or mA/KV adjustment according to patient size. FINDINGS: The lower lung courtney are clear. Imaged portions of the liver and spleen show no suspicious findings on non-contrast imaging. The panc reas and adrenal glands are normal. No pathologic lymphadenopathy in the abdomen or pelvis. 4 mm stone is present at the right UVJ with mild right hydronephrosis and hydroureter. Tiny punctate left renal calculus. No bowel obstruction, free air, free fluid or abscess. Appendectomy. No significant bony abnormality. IMPRESSION: 4 mm right UVJ stone with mild right hydronephrosis and hydroureter.
--- NOTE | 2022-03-12 21:18 | EDPHYS ---
Physician Documentation [facility] Name: Dakota Carr Age: 41 yrs Sex: Male : 1980 Arrival Date: 03/12/2022 Time: 18:50 Bed 12 Private MD: Yaniv Tran ED Physician Jeff Bruce HPI: 03/12 19:47 This 41 yrs old Male presents to ER via Ambulatory with complaints of Possible Kidney snw Stone. 19:47 The patient complains of pain in the right mid back. The pain does not radiate. Onset: snw The symptoms/episode began/occurred 4 day(s) ago, and became persistent. Associated signs and symptoms: Pertinent positives: increased right flank pain. Severity of pain: At its worst the pain was moderate severe. The patient has experienced similar episodes in the past. The patient has been recently seen at the [facility] Emergency Department, this week, for similar complaints labs were performed, CT scan was performed, was given a prescription for pain medications, was given a prescription for an antiemetic. Historical: - Allergies: 19:26 Levofloxacin; kb3 19:26 Vancomycin; kb3 - Home Meds: 19:26 None [Active]; kb3 - PMHx: 21:46 Kidney stones; kd3 - Immunization history:: Adult Immunizations up to date, Client reports receiving the 2nd dose of the Covid vaccine, Last tetanus immunization: up to date. - Social history:: Smoking status: Patient denies any tobacco usage or history of. Patient/guardian denies using alcohol, street drugs. ROS: 19:46 Constitutional: Negative for fever, chills, and weight loss, Eyes: Negative for injury, snw pain, redness, and discharge, ENT: Negative for injury, pain, and discharge, Neck: Negative for injury, pain, and swelling, Cardiovascular: Negative for chest pain, palpitations, and edema, Respiratory: Negative for shortness of breath, cough, wheezing, and pleuritic chest pain. 19:46 Back: Negative for injury and pain, MS/Extremity: Negative for injury and deformity, Skin: Negative for injury, rash, and discoloration, Neuro: Negative for headache, weakness, numbness, tingling, and seizure. 19:46 Abdomen/GI: Positive for abdominal pain, nausea and vomiting. 19:46 Back: Positive for flank pain, on the right. 19:46 : Positive for flank pain, known 4mm UJV stone a few days ago. Exam: 19:45 Constitutional: This is a well developed, well nourished patient who is awake, alert, snw and in no acute distress. Head/Face: Normocephalic, atraumatic. Eyes: Pupils equal round and reactive to light, extra-ocular motions intact. Lids and lashes normal. Conjunctiva and sclera are non-icteric and not injected. Cornea within normal limits. Periorbital areas with no swelling, redness, or edema. ENT: Nares patent. No nasal discharge, no septal abnormalities noted. Tympanic membranes are normal and external auditory canals are clear. Oropharynx with no redness, swelling, or masses, exudates, or evidence of obstruction, uvula midline. Mucous membranes moist. Neck: Trachea midline, no thyromegaly or masses palpated, and no cervical lymphadenopathy. Supple, full range of motion without nuchal rigidity, or vertebral point tenderness. No Meningismus. Chest/axilla: Normal chest wall appearance and motion. Nontender with no deformity. No lesions are appreciated. Cardiovascular: Regular rate and rhythm with a normal S1 and S2. No gallops, murmurs, or rubs. Normal PMI, no JVD. No pulse deficits. Respiratory: Lungs have equal breath sounds bilaterally, clear to auscultation and percussion. No rales, rhonchi or wheezes noted. No increased work of breathing, no retractions or nasal flaring. Skin: Warm, dry with normal turgor. Normal color with no rashes, no lesions, and no evidence of cellulitis. MS/ Extremity: Pulses equal, no cyanosis. Neurovascular intact. Full, normal range of motion. Neuro: Awake and alert, GCS 15, oriented to person, place, time, and situation. Cranial nerves II-XII grossly intact. Motor strength 5/5 in all extremities. Sensory grossly intact. Cerebellar exam normal. Normal gait. Psych: Awake, alert, with orientation to person, place and time. Behavior, mood, and affect are within normal limits. 19:45 Back: pain, that is moderate, of the right mid back, CVA tenderness, that is moderate, is noted on the right. Vital Signs: 19:24 BP 154 / 105; Pulse 86; Resp 22; Temp 97.4; Pulse Ox 100% ; Weight 104.33 kg; Height 6 kb3 ft. 2 in. (187.96 cm); Pain 9/10; 19:24 Body Mass Index 29.53 (104.33 kg, 187.96 cm) kb3 MDM: 19:37 Patient medically screened. snw 21:18 Data reviewed: vital signs, nurses notes. Data interpreted: Pulse oximetry: on room air snw is 100 %. Interpretation: normal. Counseling: I had a detailed discussion with the patient and/or guardian regarding: the historical points, exam findings, and any diagnostic results supporting the discharge/admit diagnosis, the presence of at least one elevated blood pressure reading (>120/80) during this emergency department visit, lab results, radiology results, the need for outpatient follow up, to return to the emergency department if symptoms worsen or persist or if there are any questions or concerns that arise at home. Response to treatment: the patient's symptoms have markedly improved after treatment. Special discussion: I have referred the patient to see his PCP for further evaluation of high blood pressure. Based on the history and exam findings, there is no indication for further emergent testing or inpatient evaluation. I discussed with the patient/guardian the need to see the primary care provider for further evaluation of the symptoms. I discussed with the patient/guardian the need to see the urologist for further evaluation of the symptoms. 03/12 19:25 Order name: CBC with Diff; Complete Time: 20:19 snw 03/12 19:25 Order name: Chem 7; Complete Time: 20:19 snw 03/12 20:24 Order name: CT Stone Protocol; Complete Time: 21:17 snw 03/12 20:51 Order name: Urine Dipstick-Ancillary; Complete Time: 20:57 EDMS Administered Medications: 19:48 Drug: NS 0.9% 1000 ml Route: IV; Rate: 1 bolus; Site: right antecubital; kd3 21:24 Follow up: IV Status: Completed infusion kd3 19:48 Drug: Rocephin (cefTRIAXone) 1 grams Route: IV; Rate: calculated rate; Site: right kd3 antecubital; 21:24 Follow up: IV Status: Completed infusion kd3 19:49 Drug: Ketorolac 30 mg Route: IVP; Site: right antecubital; kd3 21:24 Follow up: Response: No adverse reaction kd3 19:49 Drug: Phenergan (promethazine) 12.5 mg Route: IVP; Site: right antecubital; kd3 21:24 Follow up: Response: No adverse reaction kd3 20:29 Drug: fentaNYL (PF) 25 mcg Route: IVP; Site: right antecubital; kd3 21:24 Follow up: Response: No adverse reaction kd3 21:24 Drug: Valium (diazepam) 5 mg Route: PO; kd3 21:24 Follow up: Response: No adverse reaction kd3 Disposition: 23:42 Co-signature as Attending Physician, Jeff Bruce MD. mh7 Disposition Summary: 03/12/22 21:18 Discharge Ordered Location: Home snw Condition: Stable snw Diagnosis - Hydronephrosis with renal and ureteral calculous obstruction snw Followup: snw - With: Yaniv Tran MD - When: 2 - 3 days - Reason: Recheck today's complaints, Continuance of care, Re-evaluation by your physician Followup: snw - With: Emergency Department - When: As needed - Reason: Worsening of condition Discharge Instructions: - Discharge Summary Sheet snw - Kidney Stones snw - Renal Colic snw - Hydronephrosis snw - Dietary Guidelines to Help Prevent Kidney Stones snw - Rehydration, Adult snw Forms: - Medication Reconciliation Form snw - Thank You Letter snw - Antibiotic Education snw - Prescription Opioid Use snw Prescriptions: - promethazine 25 mg Oral Tablet - take 1 tablet by ORAL route every 6 hours As needed; 20 tablet; Refills: 0, snw Product Selection Permitted Signatures: Dispatcher [employer] EDKristi Olivas FNP-C MERCHANDISE HANDLER-Csnw Jeff Bruce MD MD mh7 Melissa Castellano RN RN kd3 Carmencita Berry RN RN kb3
--- NOTE | 2022-03-12 21:18 | ER ---
Nurse's Notes [facility] Name: Dakota Carr Age: 41 yrs Sex: Male : 1980 Arrival Date: 03/12/2022 Time: 18:50 Bed 12 Private MD: Yaniv Tran Diagnosis: Hydronephrosis with renal and ureteral calculous obstruction Presentation: 03/12 19:24 Chief complaint: Patient states: Pt reports right flank pain radiating into right lower kb3 abdomen with associated N/V since 1700 today. PT was diagnosed with 4mm renal stone on the right on Sun and has been feeling better until today. Coronavirus screen: Vaccine status: Patient reports receiving the 2nd dose of the covid vaccine. Client denies travel out of the [place] in the last 14 days. At this time, the client does not indicate any symptoms associated with coronavirus-19. Ebola Screen: Patient negative for fever greater than or equal to 101.5 degrees Fahrenheit, and additional compatible Ebola Virus Disease symptoms Patient denies exposure to infectious person. Patient denies travel to an Ebola-affected area in the 21 days before illness onset. No symptoms or risks identified at this time. Initial Sepsis Screen: Does the patient meet any 2 criteria? No. Patient's initial sepsis screen is negative. Does the patient have a suspected source of infection? No. Patient's initial sepsis screen is negative. Risk Assessment: Do you want to hurt yourself or someone else? Patient reports no desire to harm self or others. 19:24 Method Of Arrival: Ambulatory 3 19:24 Onset of symptoms was March 12, 2022 at 17:00. kb3 19:24 Acuity: CIARA 3 kb3 Triage Assessment: 19:26 General: Appears distressed, uncomfortable, Behavior is calm, cooperative. Pain: kb3 Complains of pain in right upper quadrant Pain radiates to right low back. GI: Reports nausea, vomiting. Historical: - Allergies: 19:26 Levofloxacin; kb3 19:26 Vancomycin; kb3 - Home Meds: 19:26 None [Active]; kb3 - PMHx: 21:46 Kidney stones; kd3 - Immunization history:: Adult Immunizations up to date, Client reports receiving the 2nd dose of the Covid vaccine, Last tetanus immunization: up to date. - Social history:: Smoking status: Patient denies any tobacco usage or history of. Patient/guardian denies using alcohol, street drugs. Screenin:45 Abuse screen: Denies threats or abuse. Denies injuries from another. Nutritional kd3 screening: No deficits noted. Tuberculosis screening: No symptoms or risk factors identified. Fall Risk IV access (20 points). Assessment: 21:45 GI: Bowel sounds present X 4 quads. Abd is non tender. kd3 Vital Signs: 19:24 BP 154 / 105; Pulse 86; Resp 22; Temp 97.4; Pulse Ox 100% ; Weight 104.33 kg; Height 6 kb3 ft. 2 in. (187.96 cm); Pain 9/10; 19:24 Body Mass Index 29.53 (104.33 kg, 187.96 cm) kb3 ED Course: 18:50 Patient arrived in ED. rg4 18:50 Yaniv Tran MD is Private Physician. rg4 19:19 Melissa Castellano, EDDIE is Primary Nurse. kd3 19:21 Jeff Bruce MD is Attending Physician. mh7 19:24 Kristi Bloom [facility]NP-C [facility]. snw 19:26 Triage completed. kb3 19:28 Arm band placed on left wrist. kb3 20:51 CT Stone Protocol In Process Unspecified. EDMS 21:17 Yaniv Tran MD is Referral Physician. snw 21:45 Patient has correct armband on for positive identification. kd3 21:45 No provider procedures requiring assistance completed. IV discontinued, intact, kd3 bleeding controlled, No redness/swelling at site. Pressure dressing applied. Administered Medications: 19:48 Drug: NS 0.9% 1000 ml Route: IV; Rate: 1 bolus; Site: right antecubital; kd3 21:24 Follow up: IV Status: Completed infusion kd3 19:48 Drug: Rocephin (cefTRIAXone) 1 grams Route: IV; Rate: calculated rate; Site: right kd3 antecubital; 21:24 Follow up: IV Status: Completed infusion kd3 19:49 Drug: Ketorolac 30 mg Route: IVP; Site: right antecubital; kd3 21:24 Follow up: Response: No adverse reaction kd3 19:49 Drug: Phenergan (promethazine) 12.5 mg Route: IVP; Site: right antecubital; kd3 21:24 Follow up: Response: No adverse reaction kd3 20:29 Drug: fentaNYL (PF) 25 mcg Route: IVP; Site: right antecubital; kd3 21:24 Follow up: Response: No adverse reaction kd3 21:24 Drug: Valium (diazepam) 5 mg Route: PO; kd3 21:24 Follow up: Response: No adverse reaction kd3 Medication: 21:46 VIS not applicable for this client. kd3 Outcome: 21:18 Discharge ordered by . daria 21:46 Discharged to home ambulatory. kd3 21:46 Condition: stable 21:46 Discharge instructions given to patient, Instructed on discharge instructions, follow up and referral plans. medication usage, Demonstrated understanding of instructions, follow-up care, medications, Prescriptions given X 1. 21:46 Patient left the ED. kd3 Signatures: Dispatcher [employer] EDMS Kristi Bloom, SECURITIES DEALER-C SECURITIES DEALER-CsnEsthela Krishna rg4 Jeff Bruce MD MD mh7 Melissa Castellano RN RN kd3 Carmencita Berry RN RN kb3
[2022-03-12] MEDS ORDERED: DIAZEPAM 5 MG TABLET ONE (21:30)
[2022-03-13 01:00] VITALS: BP 154/105; TEMP 97.4; O2SAT 100
== END 2022-03-12 21:46 | disposition home or self-care (01) ==
LOC: ER 18:50
DX: N13.2 Hydronephrosis with renal and ureteral calculous obstruction (principal); Z87.442 Personal history of urinary calculi; Z88.1 Allergy status to other antibiotic agents; Z88.3 Allergy status to other anti-infective agents
CPT/HCPCS: 85025; 80048; 36415; 81003; 76377; 74176; J2550; J3010; J7030; 96365; 96366; 96375; 99283